=== PATIENT | male | born 1965 | race Caucasian/White ===

== ENCOUNTER 2019-01-10 20:10 | Emergency (ER) | payer OTHER ==
[~2019-01-10] VITALS: Ht 172.7 cm; Wt 74.8 kg
[~2019-01-10 20:10] MED LIST: ASPI81CH PO; CHOL10002 PO; CIPR500 PO; CYCL10 PO; Flonase 0.05% N16 GM; HYDACE5 PO; HYOS.125 SL; Hair, Skin & N1 EACH PO; IBUP800 PO; LORA1SY PO; METAMUCIL FIBE PO; METR500 PO; OMEP20ER PO; Omeprazole20 M1 PO; PHENA100 PO; PSEU120ER PO; Percocet 5-3251 EACH PO; Pyridium100 MG PO; RXCYCL10 PO; RXHYDACE PO; SENN187 PO; TRAM50 PO
[2019-01-10 20:50] LABS: Source, Urine Clean Catch
[2019-01-10 20:53] LABS: Bilirubin, Urine Neg (Neg); Blood, Urine 1+ (Neg); Glucose Qualitative, Urine Neg (Neg); Ketones, Urine Neg (Neg); Leukocyte Esterase, Urine Neg (Neg); Nitrite, Urine Neg (Neg); Protein, Urine Neg (Neg); Urobilinogen, Urine NORM (Normal)
[2019-01-10 20:57] LABS: BASOPHILS ABSOLUTE AUTO 0.04 K/mm3 (0.00-0.23); BASOPHILS PERCENT AUTO 0 % (0-2); EOSINOPHILS ABSOLUTE AUTO 0.13 K/mm3 (0.00-0.68); EOSINOPHILS PERCENT AUTO 1 % (0-6); Hematocrit 46.5 % (37.0-53.0); Hemoglobin 15.4 g/dL (13.5-17.5); IMMATURE GRAN ABSOLUTE AUTO 0.04 K/mm3 (0.00-0.10); IMMATURE GRAN PERCENT AUTO 0 % (0-1); LYMPHOCYTES ABSOLUTE AUTO 1.91 K/mm3 (0.84-5.20); LYMPHOCYTES PERCENT AUTO 19 % (21-46); MONOCYTES ABSOLUTE AUTO 0.76 K/mm3 (0.16-1.47); MONOCYTES PERCENT AUTO 7 % (4-13); Mean Corpuscular HGB 31.6 pg (26.0-34.0); Mean Corpuscular HGB Conc 33.1 g/dL (31.5-36.5); Mean Corpuscular Volume 96 fL (80-100); Mean Platelet Volume 12.7 fL (9.1-12.4); NEUTROPHILS ABSOLUTE AUTO 7.47 K/mm3 (1.96-9.15); NEUTROPHILS PERCENT AUTO 72 % (41-73); Platelet Count 191 K/mm3 (150-400); RDW Coefficient Variation 11.7 % (11.7-14.2); RDW Standard Deviation 40.8 fL (35.1-46.3); Red Blood Cell Count 4.87 M/mm3 (4.30-5.90); White Blood Cell Count 10.35 K/mm3 (4.00-11.30)
[2019-01-10 21:00] LABS: Appearance, Urine Clear (Clear); Color, Urine Yellow (P-Yellow)
[2019-01-10 21:01] LABS: Bacteria Not Seen /hpf; Red Blood Cells, Urine 0-2 /hpf (0-2); Squamous Epithelial Cells Not Seen /hpf (Few); White Blood Cells, Urine Not Seen /hpf (0-5)
[2019-01-10 21:16] LABS: Alanine Aminotransfer (ALT/SGP 24 U/L (12-78); Albumin, Blood 4.1 g/dL (3.4-5.0); Albumin/Globulin Ratio 1.1 (0.8-1.8); Alk Phos 91 U/L (50-136); Anion Gap 6 mmol/L (6-16); Aspartate Aminotrans (AST/SGOT 20 U/L (12-37); Bilirubin, Total 0.4 mg/dL (0.1-1.0); Blood Urea Nitrogen 8 mg/dL (8-24); Bun/Creatinine Ratio 9.2 (12.0-20.0); CO2, Blood 29 mmol/L (21-32); Calcium, Blood 9.1 mg/dL (8.5-10.1); Chloride, Blood 105 mmol/L (98-108); Creatinine, Blood 0.87 mg/dL (0.60-1.20); Globulin, Blood 3.6 g/dL (2.2-4.0); Glomerular Filtration Rate >60 (60-); Glucose, Blood 103 mg/dL (70-99); Potassium, Blood 3.7 mmol/L (3.5-5.5); Sodium, Blood 140 mmol/L (136-145); Total Protein, Blood 7.7 g/dL (6.4-8.2)
[2019-01-10] MEDS ORDERED: Flagyl500 MG PO (22:18)
[2019-01-10] MEDS ORDERED: LEVFLO500 PO (22:18)
[2019-01-10] MEDS ORDERED: Percocet 5-3251 EACH PO (22:18)
== END 2019-01-10 23:24 | disposition home or self-care (01) ==
LOC: ER 20:10
PROVIDERS: Physician Assistant
DX: K57.32 Diverticulitis of large intestine without perforation or abscess without bleeding (principal); Z79.899 Other long term (current) drug therapy; Z79.891 Long term (current) use of opiate analgesic; Z87.891 Personal history of nicotine dependence
CPT/HCPCS: 36415; 74176; 80053; 81001; 85025; 96374; 96375; 99284-25; A9270-GY; J2405; J3010

== ENCOUNTER 2019-01-16 15:21 | Inpatient (IN) | payer OTHER ==
[~2019-01-16] VITALS: Ht 172.7 cm; Wt 66.1 kg
[~2019-01-16 15:21] MED LIST changes: +Flagyl500 MG PO; -Flonase 0.05% N16 GM; +LEVFLO500 PO
[2019-01-16 16:10] LABS: BASOPHILS ABSOLUTE AUTO 0.03 K/mm3 (0.00-0.23); BASOPHILS PERCENT AUTO 0 % (0-2); EOSINOPHILS ABSOLUTE AUTO 0.07 K/mm3 (0.00-0.68); EOSINOPHILS PERCENT AUTO 1 % (0-6); Hematocrit 45.8 % (37.0-53.0); Hemoglobin 15.4 g/dL (13.5-17.5); IMMATURE GRAN ABSOLUTE AUTO 0.04 K/mm3 (0.00-0.10); IMMATURE GRAN PERCENT AUTO 0 % (0-1); LYMPHOCYTES ABSOLUTE AUTO 1.25 K/mm3 (0.84-5.20); LYMPHOCYTES PERCENT AUTO 12 % (21-46); MONOCYTES ABSOLUTE AUTO 0.95 K/mm3 (0.16-1.47); MONOCYTES PERCENT AUTO 9 % (4-13); Mean Corpuscular HGB 31.2 pg (26.0-34.0); Mean Corpuscular HGB Conc 33.6 g/dL (31.5-36.5); Mean Platelet Volume 11.9 fL (9.1-12.4); NEUTROPHILS ABSOLUTE AUTO 8.26 K/mm3 (1.96-9.15); NEUTROPHILS PERCENT AUTO 78 % (41-73); Platelet Count 203 K/mm3 (150-400); RDW Coefficient Variation 11.7 % (11.7-14.2); RDW Standard Deviation 39.9 fL (35.1-46.3); Red Blood Cell Count 4.94 M/mm3 (4.30-5.90)
[2019-01-16 16:32] LABS: Alanine Aminotransfer (ALT/SGP 39 U/L (12-78); Albumin, Blood 3.7 g/dL (3.4-5.0); Alk Phos 86 U/L (50-136); Anion Gap 7 mmol/L (6-16); Aspartate Aminotrans (AST/SGOT 28 U/L (12-37); Bilirubin, Total 0.5 mg/dL (0.1-1.0); Blood Urea Nitrogen 10 mg/dL (8-24); Bun/Creatinine Ratio 10.7 (12.0-20.0); CO2, Blood 28 mmol/L (21-32); Chloride, Blood 102 mmol/L (98-108); Creatinine, Blood 0.93 mg/dL (0.60-1.20); Globulin, Blood 3.8 g/dL (2.2-4.0); Glomerular Filtration Rate >60 (60-); Glucose, Blood 110 mg/dL (70-99); Potassium, Blood 4.4 mmol/L (3.5-5.5); Sodium, Blood 137 mmol/L (136-145); Total Protein, Blood 7.5 g/dL (6.4-8.2)
[2019-01-16 16:40] LABS: Mean Corpuscular Volume 93 fL (80-100)
[2019-01-16] MEDS ORDERED: IBUP800 PO (20:14)
[2019-01-16] MEDS ORDERED: Flonase 0.05% N16 GM (20:16)
--- NOTE | 2019-01-17 05:15 | NUR ---
NOC SHIFT SUMMARY PT ADMITTED THIS NIGHT FOR SIGMOID DIVERTICULITIS WITH INTRACTIBLE PAIN. HE IS PLEASANT AND COOPERATIVE WITH CARE. VSS. HAVE MEDICATED PER EMAR FOR PAIN. PT STATES PAIN HAS IMPROVED. HE IS AAOX4. RESP ARE EVEN AND UNLABORED. IS STILL AWAKE IN ROOM AND STATES NOT SLEEPY. CURRENTLY DOES NOT APPEAR IN ACUTE DISTRESS. I HAVE CALLED TO RT FOR CONTINIOUS PULSE OX TO BE PLACED. WILL CONTINUE TO MONITOR.
[2019-01-17 06:04] LABS: Anion Gap 5 mmol/L (6-16); Blood Urea Nitrogen 9 mg/dL (8-24); CO2, Blood 28 mmol/L (21-32); Calcium, Blood 8.6 mg/dL (8.5-10.1); Chloride, Blood 106 mmol/L (98-108); Creatinine, Blood 0.82 mg/dL (0.60-1.20); Glomerular Filtration Rate >60 (60-); Glucose, Blood 85 mg/dL (70-99); Sodium, Blood 139 mmol/L (136-145)
[2019-01-17 12:40] LABS: Adenovirus F 40/41 Not Detected (NOT DETECT); Astrovirus Not Detected (NOT DETECT); Campylobacter Sp Not Detected (NOT DETECT); Cryptosporidium Not Detected (NOT DETECT); Cyclospora Cayetanensis Not Detected (NOT DETECT); E. Coli O157 Not Detected (NOT DETECT); Entamoeba Histolytica Not Detected (NOT DETECT); Enteroaggregative E. coli-EAEC Not Detected (NOT DETECT); Enteropathogenic E. coli-EPEC Not Detected (NOT DETECT); Enterotoxigenic E. coli-ETEC Not Detected (NOT DETECT); Giardia Lamblia Not Detected (NOT DETECT); Norovirus GI/GII Not Detected (NOT DETECT); Plesiomonas Shigelloides Not Detected (NOT DETECT); Rotavirus A Not Detected (NOT DETECT); Salmonella Sp Not Detected (NOT DETECT); Sapovirus Not Detected (NOT DETECT); Shiga Toxin-prod E. coli-STEC Not Detected (NOT DETECT); Shigella/Enteroin E. coli-EIEC Not Detected (NOT DETECT); Vibrio Cholerae Not Detected (NOT DETECT); Vibrio Sp Not Detected (NOT DETECT); Yersinia Enterocolitica Not Detected (NOT DETECT)
--- NOTE | 2019-01-17 17:34 | NUR ---
PT IS ALERT AND ORIENTED AND COOPERATIVE WITH CARE. HE STARTED A CLEAR LIQUID DIET TODAY. HE COMPLAINED OF MINOR PAIN IN HIS ABDOMEN AFTER EATING JELLO. PT CALLS APPROPRIATELY AND ALERTS THE RN WHEN HE IS IN PAIN. WILL CONTINUE TO MONITOR.
--- NOTE | 2019-01-18 06:01 | NUR ---
SHIFT SUMMARY NO ACUTE CHANGES TO PRESENT THIS SHIFT. PT IS A&O, UP INDEPENDANT IN . TO SHOWER LAST NIGHT THEN REQUESTED NEW IV; PLACED TO RFA PER REQUEST. TOLERATED WELL. MEDICATED PER EMAR FOR C/O LOW ABD PAIN. TOLERATED CHICKEN BROTH AND APPLE JUICE LAST NIGHT. UNABLE TO TOLERATE EARLIER IN THE DAY. IV AND PO ABX GIVEN PER EMAR FOR DIVERTICULITIS AND C-DIFF. IVF'S INFUSING. PT UNABLE TO TOLERATE SCD'S DURING THE NIGHT. CALL LT IN REACH.
--- NOTE | 2019-01-18 18:42 | NUR ---
SHIFT SUMMARY MEDICATED FOR PAIN SEVERAL TIMES THIS SHIFT PER EMAR. PT DRINKING CLEAR LIQUIDS THIS SHIFT AND REPORTS PAIN HAS WORSENED FROM BREAKFAST TO LUNCH WHEN DRINKING. NO NAUSEA REPORTED. IVF INFUSING W/O DIFFICULTY. NO ACUTE CHANGES THIS SHIFT. CALL LIGHT IN REACH. WILL CONTINUE TO MONITOR AND REPORT TO ONCOMING RN.
--- NOTE | 2019-01-19 05:03 | NUR ---
SHIFT SUMMARY NO ACUTE CHANGES TO PRESENT THIS SHIFT. PT HAS RESTED WELL TONIGHT, SLEEPING MOST OF SHIFT. PT TOLERATED MOST OF CL DINNER TRAY. EGG CRATE PLACED ON BED, PER PT REQUEST, BEFORE HS. PT MEDICATED FOR SLEEP PER PT REQUEST. IVF'S CONTINUE TO INFUSE PER EMAR. PT IS INDEPENDANT IN RM AND TO BTHRM. PT DENIED FURTHER NEEDS. PT REQUESTING TO WEAR SCD'S TODAY INSTEAD OF GETTING ANOTHER LOVENOX INJECTION. CALL LT IN REACH.
--- NOTE | 2019-01-19 18:47 | NUR ---
SHIFT SUMMARY PT WAS CHANGED TO FULL LIQUID THIS SHIFT AND IS EATING SMALL AMOUNTS AND TOLERATING IT. PT DOES COMPLAIN OF CRAMPING AFTER BUT REPOPRTS PAIN IS MUCH BETTER. MEDICATED FOR PAIN WITH ORAL PAIN MEDICATION AND PT REPORTS IT IS EFFECTIVE. PT UP INDEPENDENTLY IN ROOM. NO ACUTE CHANGES THIS SHIFT. CALL LIGHT IN REAC. WILL CONTINUE TO MONITOR AND REPORT TO ONCOMING RN.
--- NOTE | 2019-01-20 18:36 | NUR ---
SHIFT SUMMARY: NO ACUTE CHANGES TO REPORT THIS SHIFT. PT A&O; CALM AND COOPERATIVE WITH CARE. MEDICATED FOR CHRONIC BACK PAIN PER EMAR. PT DIET ADVANCED TO REGULAR ADULT THIS SHIFT; PT NOT TOLERATING-C/O ABD PAIN 03/28 AFTER EVENING MEAL.IV ABX CONTINUING. WCTM.
[2019-01-21] MEDS ORDERED: Bentyl10 MG PO (13:50)
[2019-01-21] MEDS ORDERED: Florastor250 MG PO (13:50)
[2019-01-21] MEDS ORDERED: LEVFLO500 PO (13:51)
[2019-01-21] MEDS ORDERED: METR500 PO (13:51)
--- NOTE | 2019-01-21 14:58 | NUR ---
PATIENT DISCHARGE: PATIENT DISCHARGED TO HOME THIS SHIFT. MEDICATION RECONCILIATION COMPLETED; MED LIST FAXED TO [facility]; HARD SCRIPT PROVIDED TO PATIENT FOR CONTROLLED SUBSTANCE. DISCHARGE EDUCATION COMPLETED WITH PATIENT. PATIENT TRASNPORTED TO EXIT BY [facility] STAFF WITH WHEELCHAIR AT 1407. PATIENT DEPARTED [facility] VIA PRIVATE AUTO.
== END 2019-01-21 14:04 | disposition home or self-care (01) | DRG 392 ==
LOC: ER 15:21 → MEDS 15:22 → ENPENDDIS 01-21 10:33 → MEDS 01-21 14:04
PROVIDERS: Nurse Practitioner Acute Care; Physician Assistant; ADMIT Internal Medicine
DX: K57.32 Diverticulitis of large intestine without perforation or abscess without bleeding (principal); A04.72 Enterocolitis due to Clostridium difficile, not specified as recurrent; K21.9 Gastro-esophageal reflux disease without esophagitis; K58.9 Irritable bowel syndrome, unspecified; R59.0 Localized enlarged lymph nodes; I95.9 Hypotension, unspecified; M54.9 Dorsalgia, unspecified
CPT/HCPCS: 36415; 36416; 74177; 80048; 80053; 83735; 85025; 87324; 87507; 93005; 93010; 94762; 96361; 96361-59; 96365-59; 96366; 96367-59; 96375; 96375-59; 96376; 99285-25; A9270-GY; C9113; G0378; J0696; J1170; J1650; J2270; J2405; J2765; J7030; Q9967

== ENCOUNTER 2019-02-02 06:57 | Inpatient (IN) | payer OTHER ==
[~2019-02-02] VITALS: Ht 175.3 cm; Wt 83.7 kg
[~2019-02-02 06:57] MED LIST changes: +Bentyl10 MG PO; +Flonase 0.05% N16 GM; +Florastor250 MG PO
[2019-02-02] MEDS ORDERED: Percocet 5-3251 EACH PO (07:50)
[2019-02-03 05:03] LABS: BASOPHILS ABSOLUTE AUTO 0.02 K/mm3 (0.00-0.23); BASOPHILS PERCENT AUTO 0 % (0-2); EOSINOPHILS ABSOLUTE AUTO 0.01 K/mm3 (0.00-0.68); EOSINOPHILS PERCENT AUTO 0 % (0-6); Hematocrit 38.2 % (37.0-53.0); Hemoglobin 12.8 g/dL (13.5-17.5); IMMATURE GRAN ABSOLUTE AUTO 0.06 K/mm3 (0.00-0.10); IMMATURE GRAN PERCENT AUTO 0 % (0-1); LYMPHOCYTES ABSOLUTE AUTO 1.41 K/mm3 (0.84-5.20); LYMPHOCYTES PERCENT AUTO 10 % (21-46); MONOCYTES ABSOLUTE AUTO 0.96 K/mm3 (0.16-1.47); MONOCYTES PERCENT AUTO 7 % (4-13); Mean Corpuscular HGB 31.1 pg (26.0-34.0); Mean Corpuscular HGB Conc 33.5 g/dL (31.5-36.5); Mean Corpuscular Volume 93 fL (80-100); Mean Platelet Volume 12.1 fL (9.1-12.4); NEUTROPHILS PERCENT AUTO 82 % (41-73); Platelet Count 223 K/mm3 (150-400); RDW Coefficient Variation 11.9 % (11.7-14.2); RDW Standard Deviation 40.7 fL (35.1-46.3); Red Blood Cell Count 4.11 M/mm3 (4.30-5.90); White Blood Cell Count 13.56 K/mm3 (4.00-11.30)
[2019-02-03 05:27] LABS: Anion Gap 6 mmol/L (6-16); Blood Urea Nitrogen 8 mg/dL (8-24); Bun/Creatinine Ratio 11.5 (12.0-20.0); CO2, Blood 28 mmol/L (21-32); Calcium, Blood 8.3 mg/dL (8.5-10.1); Chloride, Blood 107 mmol/L (98-108); Creatinine, Blood 0.69 mg/dL (0.60-1.20); Glomerular Filtration Rate >60 (60-); Glucose, Blood 108 mg/dL (70-99); Potassium, Blood 4.1 mmol/L (3.5-5.5); Sodium, Blood 141 mmol/L (136-145)
[2019-02-08] MEDS ORDERED: ONDA4ODT MM (07:51)
[2019-02-08] MEDS ORDERED: Percocet 5-3251 EACH PO (07:53)
[2019-02-08] MEDS ORDERED: Flagyl500 MG PO (08:50)
[2019-02-08] MEDS ORDERED: LEVFLO500 PO (08:50)
== END 2019-02-08 09:30 | disposition home or self-care (01) | DRG 331 ==
LOC: SURS 06:57 → PRE IP 08:45 → SURS 13:14
PROVIDERS: ADMIT Surgery
PROC: 0DTN0ZZ Resection of Sigmoid Colon, Open Approach (ICD-10-PCS; principal; 2019-02-02 08:45)
DX: K57.30 Diverticulosis of large intestine without perforation or abscess without bleeding (principal); K58.9 Irritable bowel syndrome, unspecified; K21.9 Gastro-esophageal reflux disease without esophagitis; Z90.79 Acquired absence of other genital organ(s); Z87.891 Personal history of nicotine dependence
CPT/HCPCS: 36415; 80048; 85025; 87493; 88307; A9270-GY; J0295; J1100; J1885; J2250; J2370; J2405; J2704; J2710; J2765; J3010; J7120; Q0163; V2790

== ENCOUNTER 2019-11-06 07:14 | Day surgery (SDC) | payer OTHER ==
[~2019-11-06] VITALS: Ht 172.7 cm; Wt 71.7 kg
[~2019-11-06 07:14] MED LIST changes: +Loratadine10 MG; +ONDA4ODT MM
[2019-11-06] MEDS ORDERED: FLUO10 PO (07:56)
== END 2019-11-06 09:08 | disposition home or self-care (01) ==
LOC: ORSCSDS 07:14
PROVIDERS: Surgery
PROC: 0DBM8ZX Excision of Descending Colon, Via Natural or Artificial Opening Endoscopic, Diagnostic (ICD-10-PCS; principal; 2019-11-06 08:45)
PROC: 0DBL8ZX Excision of Transverse Colon, Via Natural or Artificial Opening Endoscopic, Diagnostic (ICD-10-PCS; principal; 2019-11-06 08:45)
DX: Z12.11 Encounter for screening for malignant neoplasm of colon (principal); Z86.010 Personal history of colon polyps; D12.3 Benign neoplasm of transverse colon; D12.4 Benign neoplasm of descending colon; K21.9 Gastro-esophageal reflux disease without esophagitis; Z79.899 Other long term (current) drug therapy
CPT/HCPCS: 88305; J2704; J7120

== ENCOUNTER → 2021-05-05 | Outpatient (CLI) | payer OTHER ==
[~2021-05-05] MED LIST changes: +FLUO10 PO
[2021-05-05 13:22] LABS: BASOPHILS ABSOLUTE AUTO 0.04 K/mm3 (0.00-0.23); BASOPHILS PERCENT AUTO 1 % (0-2); EOSINOPHILS ABSOLUTE AUTO 0.09 K/mm3 (0.00-0.68); EOSINOPHILS PERCENT AUTO 2 % (0-6); Hemoglobin 14.2 g/dL (13.5-17.5); IMMATURE GRAN ABSOLUTE AUTO 0.01 K/mm3 (0.00-0.10); IMMATURE GRAN PERCENT AUTO 0 % (0-1); LYMPHOCYTES ABSOLUTE AUTO 1.36 K/mm3 (0.84-5.20); LYMPHOCYTES PERCENT AUTO 33 % (21-46); MONOCYTES ABSOLUTE AUTO 0.31 K/mm3 (0.16-1.47); MONOCYTES PERCENT AUTO 8 % (4-13); Mean Corpuscular HGB 30.1 pg (26.0-34.0); Mean Corpuscular HGB Conc 32.3 g/dL (31.5-36.5); Mean Corpuscular Volume 93 fL (80-100); Mean Platelet Volume 11.7 fL (9.1-12.4); NEUTROPHILS ABSOLUTE AUTO 2.29 K/mm3 (1.96-9.15); NEUTROPHILS PERCENT AUTO 56 % (41-73); Platelet Count 219 K/mm3 (150-400); RDW Coefficient Variation 13.1 % (11.7-14.2); Red Blood Cell Count 4.71 M/mm3 (4.30-5.90)
[2021-05-05 14:13] LABS: Alanine Aminotransfer (ALT/SGP 32 U/L (12-78); Albumin, Blood 3.6 g/dL (3.4-5.0); Albumin/Globulin Ratio 1.2 (0.8-1.8); Alk Phos 73 U/L (50-136); Anion Gap 5 mmol/L (6-16); Aspartate Aminotrans (AST/SGOT 25 U/L (12-37); Bilirubin, Total 0.4 mg/dL (0.1-1.0); Blood Urea Nitrogen 19 mg/dL (8-24); Bun/Creatinine Ratio 24.1 (12.0-20.0); CHOL/HDL RATIO 2.3; CO2, Blood 25 mmol/L (21-32); Calcium, Blood 8.4 mg/dL (8.5-10.1); Chloride, Blood 111 mmol/L (98-108); Cholesterol 161 mg/dL (50-200); Creatinine, Blood 0.79 mg/dL (0.60-1.20); Glomerular Filtration Rate >60 (60-); Glucose, Blood 108 mg/dL (70-99); HDL Cholesterol 70 mg/dL (>39); LDL/HDL RATIO 1.2; Low Density Lipoprotein Chol 85 mg/dL (0-110); Potassium, Blood 4.2 mmol/L (3.5-5.5); Sodium, Blood 141 mmol/L (136-145); Thyroid Stimulating Hormone 0.878 uIU/mL (0.360-4.800); Total Protein, Blood 6.6 g/dL (6.4-8.2); Triglycerides 31 mg/dL (30-160); Very Low Density Lipoprot Chol 6 mg/dL (6-32)
[2021-05-06 08:11] LABS: HIV SCREEN 4TH GENERATION WRFX Non Reactive (Non Reactive)
== END | disposition home or self-care (01) ==
LOC: LAB SHORT 12:11 → LAB 12:11
PROVIDERS: Family Medicine
DX: Z00.01 Encounter for general adult medical examination with abnormal findings (principal); Z13.6 Encounter for screening for cardiovascular disorders; Z11.59 Encounter for screening for other viral diseases; K21.9 Gastro-esophageal reflux disease without esophagitis; E55.9 Vitamin D deficiency, unspecified
CPT/HCPCS: 80053; 80061; 82306; 84443; 85025; 86803; 87389

== ENCOUNTER 2022-12-27 09:59 | Inpatient (IN) | payer OTHER ==
[2022-12-27] VITALS (8 sets, daily range): BP systolic 92–141; BP diastolic 51–83
[~2022-12-27] VITALS: Ht 172.7 cm; Wt 76.9 kg
[~2022-12-27 09:59] MED LIST changes: +Acetaminophen650 M1 PO; -Flonase 0.05% N16 GM; +Flonase 0.05% Nasal; +IBUP200 PO; -Loratadine10 MG; +Loratadine10 MG PO; +MELO7.5 PO; +VENL75ER PO; +[UNRECOGNIZED DRUG - OTHER] TOP
--- NOTE | 2022-12-27 11:33 | NUR ---
History, Chart, Medications and Allergies reviewed before start of procedure. Lungs clear T/O to Auscultation. Patient confirms NPO status and agrees with scheduled surgery. Pre-Op teaching done. Pt verbalizes understanding. Patient reports completing Chlorhexadine shower X2 prior to admission to hospital.
--- NOTE | 2022-12-27 19:43 | NUR ---
SHIFT SUMMARY PT A&OX4, VSS/RA, TWILA PO, VOIDING, PAIN MANAGED WITH TYL/TOR/OXY, AMB SBA FWW & GB, UP TO CHAIR. S/P L TKA, AQUACEL CDI. REPORT TO TYLER ESPINOZA.
[2022-12-28] VITALS (9 sets, daily range): BP systolic 91–151; BP diastolic 68–95
[2022-12-28 04:56] LABS: BASOPHILS ABSOLUTE AUTO 0.03 K/mm3 (0.00-0.23); BASOPHILS PERCENT AUTO 0 % (0-2); EOSINOPHILS ABSOLUTE AUTO 0.04 K/mm3 (0.00-0.68); EOSINOPHILS PERCENT AUTO 0 % (0-6); Hematocrit 41.5 % (37.0-53.0); Hemoglobin 13.9 g/dL (13.5-17.5); IMMATURE GRAN ABSOLUTE AUTO 0.05 K/mm3 (0.00-0.10); IMMATURE GRAN PERCENT AUTO 0 % (0-1); LYMPHOCYTES ABSOLUTE AUTO 2.11 K/mm3 (0.84-5.20); LYMPHOCYTES PERCENT AUTO 17 % (21-46); MONOCYTES ABSOLUTE AUTO 0.81 K/mm3 (0.16-1.47); MONOCYTES PERCENT AUTO 7 % (4-13); Mean Corpuscular HGB Conc 33.5 g/dL (31.5-36.5); Mean Corpuscular Volume 90 fL (80-100); Mean Platelet Volume 10.9 fL (9.1-12.4); NEUTROPHILS ABSOLUTE AUTO 9.06 K/mm3 (1.96-9.15); NEUTROPHILS PERCENT AUTO 75 % (41-73); Platelet Count 206 K/mm3 (150-400); RDW Coefficient Variation 12.2 % (11.7-14.2); Red Blood Cell Count 4.63 M/mm3 (4.30-5.90)
[2022-12-28 06:00] LABS: Bun/Creatinine Ratio 16.4 (12.0-20.0); Calcium, Blood 8.7 mg/dL (8.5-10.1); Creatinine, Blood 0.85 mg/dL (0.60-1.20); Magnesium, Blood 2.1 mg/dL (1.6-2.4); Potassium, Blood 4.1 mmol/L (3.5-5.5)
--- NOTE | 2022-12-28 07:26 | NUR ---
SHIFT SUMMARY POD1 L TKA WITH AQUACEL DRESSING REMAINED CDI. PT'S PAIN REMAIN MODERATE T/O SHIFT. PAIN MANAGED WITH TORADOL,TYLENOL AND BENEDICTO. TOLERATING PO INTAKE. DENIES N/V. VOIDING. 1PA WITH FWW AND GB. PT PREFERED TO SLEEP IN HIS RECLINER LAST NIGHT. WALKED IN THE HALLWAY. VSS. DENIES CP AND SOB. DENIES DIZZINESS. CALL LIGHT WITHIN REACH. REPORT GIVENT TO PABLITO ESPINOZA.
[2022-12-28] MEDS ORDERED: Aspir 8181 MG PO (12:42)
[2022-12-28] MEDS ORDERED: OXAYDO5 M1 PO (12:42)
--- NOTE | 2022-12-28 15:55 | NUR ---
Pt. is awake in bed and welcomes this grid maker's visit. Pt. is pleasant and rapport is established. Facilitated a life review. Pt. displays evidence of engagement and awareness. Pt. also verbalizes about the support he has from siblings in the area. Pt. is a man of austyn and matters of austyn and belief are considered. Prayed for Pt. Pt. verbalized gratitude for the spiritual care visit.
--- NOTE | 2022-12-28 16:44 | NUR ---
SHIFT SUMMARY POD1 L TKA WITH AQUACEL DRESSING, REMAINED CDI. PT REPORTED MINIMAL PAIN, PAIN MANAGED WITH TORADOL AND TYLENOL. PT HAS POLAR PACK, [place] HOSE, AND SCD. LLE ELEVATED. PT AMBULATES WITH WALKER, GAIT BELT, AND MINIMAL NURSE ASSIST TO THE BATHROOM AND WHILE WALKING. PT EXPERIENCED SYMPTOMATIC ORTHOSTATIC HYPOTENSION WHILE WORKING WITH PHYSICAL THERAPY AND CONTINUES TO REPORT OCCASSIONAL DIAPHORESIS. HOSPITALIST CONSULT COMPLETED, WAITNG FOR MD TO ARRIVE. PT IS A&Ox4.
--- NOTE | 2022-12-28 17:59 | NUR ---
ORTHOSTATIC HYPOTENSION PT WORKED WITH PHYSICAL THERAPY THIS AM AND BECAME DIAPHORETIC, CLAMMY, AND DIZZY/LIGHTHEADED WHEN AMBULATING. PT WAS ASSISTED BACK TO THE CHAIR AND BP WAS CHECKED BY MAYTE FROM PHYSICAL THERAPY. BP WAS 105/73 AFTER GETTING BACK TO THE CHIAR. PT RECOVERED AND FELT BETTER AFTER REST. PT STATED HE HAS HAD SEVERAL EPISODES LIKE THIS AND HAS NEARLY FAINTED AT HOME PRIOR TO COMING IN FOR SURGERY. PT ALSO REPORTS HE HAD AN EPISODE IN DAY SURGERY PRIOR TO HIS OPERATION; PT STATED HE WAS UP TO THE BATHROOM AND FELT LIKE HE WAS GOING TO FAINT. FLUIDS ENCOURAGED. REACHED OUT TO DR. FAIRCHILD AT 1053 REQUESTING A PHONE CALL REGARDING CONCERNS. MAYTE FROM PHYSICAL THERAPY RETURNED FOR A SECOND SESSION OF THERAPY THIS AFTERNOON. PT STARTED TO FEEL DIAPHORETIC AND HOT WHILE DOING EXERCISES IN THE CHAIR. BP WAS CHECKED AND WAS 138/75 HR 91 WHILE SITTING. WHEN PT STOOD BP DROPPED TO 91/76 AND HR INCREASED TO 122. PT WAS ASSISTED TO GET BACK TO THE CHAIR. BP IMPROVED AFTER SITTING DOWN AND SYMPTOMS RESOLVED. DR. FAIRCHILD NOTIFIED AND HOSPITALIST CONSULT WAS ORDERED. [facility] NURSE PRACTITIONER CONSULTED AND ORDERED 1L FLUID BOLUS. PLAN TO CHECK ORTHOSTATIC VS WHEN BOLUS IS COMPLETE.
--- NOTE | 2022-12-28 18:53 | NUR ---
SPOKE WITH KARINA MORALES AFTER 1L OF NORMAL SALINE WAS GIVEN AND ORTHOSTATIC VS CHECKED. SITTING 127/77 HR 78 STANDING 131/74 HR 82 AFTER WALKING IN THE ROOM 126/72 HR 75 PT REPORTED FEELING DIZZY WITH THE TRANSITION FROM SITTING TO STANDING. PER KARINA MORALES PT SHOULD HAVE AND ADDITIONAL LITER BOLUS WITH LACTATED RINGERS SINCE HE STILL FELT DIZZY WHEN TRANSITIONING FROM SITTING TO STANDING.
[2022-12-29 03:50] VITALS: BP 118/76
[2022-12-29 03:51] VITALS: BP 118/76
--- NOTE | 2022-12-29 05:28 | NUR ---
POD2 L TKA. PATIENT AOX4. AQUACEL TO L KNEE C/D/I. POLAR DAVID IN PLACE. [place]'S AND SCD'S IN PLACE. PATIENT VOIDING AND TOLERATING PO INTAKE. 1 ITER BOLUS INFUSED AT START OF SHIFT FOR ORTHOSTATIC BP. PATIENT DID EXPERIENCE SOME DIZZINESS AND SWEATING WHILE AMBULATING TO THE BATHROOM AT START OF SHIFT. PATIENT USES GB, FWW AND 1 ASSIST TO AMBULATE. BP HAS RESOLVED TO 118/76, DENIES DIZZINESS, SOB, CHEST PAIN, SWEATING. CURRENTLY PATIENT IS WELL PAIN MANAGED AND RESTING. PATIENT CALLS APPROPRIATELY AND CALL LIGHT IS IN REACH.PLAN TO WORK WITH THERAPY AND DISCHARGE HOME. WILL REPORT TO DAY RN
[2022-12-29 08:25] VITALS: BP 131/81
[2022-12-29 08:27] VITALS: BP 120/72
--- NOTE | 2022-12-29 09:53 | NUR ---
THIS NURSE TALKED WITH DR. FAIRCHILD ABOUT PATIENTS FATIGUE/SHORTNESS OR BREATH WITH PHYSICAL THERAPY EVEN THOUGH PATIENT HAS HAD IMPROVED BP'S. DR. FAIRCHILD IS OKAY WITH DISCHARGE.
--- NOTE | 2022-12-29 10:55 | NUR ---
DISCHARGE NOTE: PATIENT WAS EDUCATED ON DISCHARGE INSTRUCTIONS, ESPECIALLY HOW TO PREVENT FALLS AT HOME. PATIENT VERBALIZED UNDERSTANDING OF INSTRUCTIONS AND HAD NO FURTHER QUESTIONS AT THIS TIME. IV WAS TAKEN OUT AND WNL. PAIN IS MANAGED WITH ORAL PAIN MEDICATIONS. HIS LEFT KNEE HAS AN AQUACEL THAT IS C/D/I. DENIES NUMBNESS OR TINGLING AND CAN MOVE ALL FINGERS AND TOES. HE IS A SBA WITH FWW AND GAIT BELT. HE IS TOLERATING PO INTAKE AND IS VOIDING. PATIENT IS DRESSED AND HAS ITEMS IN THE ROOM GATHERED. HIS SISTER IS ON HER WAY TO COME PICK HIM UP SHORTLY.
--- NOTE | 2022-12-29 11:18 | NUR ---
patient is being wheelchaired out to sisters car to be taken home.
== END 2022-12-29 11:25 | disposition home or self-care (01) | DRG 470 ==
LOC: ORSCMMR 09:59 → ORD 11:30 → ORSCMMR 12:45 → SURS 15:03 → ORSCMMR 12-28 12:15 → SURS 12-28 12:15 → ORSCMMR 12-28 19:19 → SURS 12-28 19:20
PROVIDERS: ADMIT Orthopaedic Surgery
PROC: 0SRD0JA Replacement of Left Knee Joint with Synthetic Substitute, Uncemented, Open Approach (ICD-10-PCS; principal; 2022-12-27 12:45)
PROC: 0YPB0YZ Removal of Other Device from Left Lower Extremity, Open Approach (ICD-10-PCS; principal; 2022-12-27 12:45)
DX: M17.12 Unilateral primary osteoarthritis, left knee (principal); M17.32 Unilateral post-traumatic osteoarthritis, left knee; K21.9 Gastro-esophageal reflux disease without esophagitis; I95.1 Orthostatic hypotension; F12.10 Cannabis abuse, uncomplicated; N40.0 Benign prostatic hyperplasia without lower urinary tract symptoms; G56.00 Carpal tunnel syndrome, unspecified upper limb; E55.9 Vitamin D deficiency, unspecified; M25.50 Pain in unspecified joint; Z98.1 Arthrodesis status; Z86.19 Personal history of other infectious and parasitic diseases; Z79.899 Other long term (current) drug therapy; Z98.890 Other specified postprocedural states; Z87.19 Personal history of other diseases of the digestive system; Z90.49 Acquired absence of other specified parts of digestive tract; Z79.52 Long term (current) use of systemic steroids
CPT/HCPCS: 36415; 73560-LT; 80048; 83735; 85025; 97110; 97116; 97161; 97530; A9270; C1776; J0171; J0690; J0735; J1100; J1885; J2250; J2370; J2405; J2704; J2795; J3010; J7030; J7120

== ENCOUNTER → 2025-05-27 | Outpatient (CLI) | payer OTHER ==
[~2025-05-27] MED LIST changes: +Aspir 8181 MG PO; +OXAYDO5 M1 PO
[2025-05-27 16:48] LABS: BASOPHILS ABSOLUTE AUTO 0.04 K/mm3 (0.00-0.23); BASOPHILS PERCENT AUTO 1 % (0-2); EOSINOPHILS ABSOLUTE AUTO 0.19 K/mm3 (0.00-0.68); EOSINOPHILS PERCENT AUTO 4 % (0-6); Hematocrit 44.3 % (37.0-53.0); Hemoglobin 14.6 g/dL (13.5-17.5); IMMATURE GRAN ABSOLUTE AUTO 0.03 K/mm3 (0.00-0.10); IMMATURE GRAN PERCENT AUTO 1 % (0-1); LYMPHOCYTES ABSOLUTE AUTO 1.84 K/mm3 (0.84-5.20); LYMPHOCYTES PERCENT AUTO 34 % (21-46); MONOCYTES ABSOLUTE AUTO 0.43 K/mm3 (0.16-1.47); MONOCYTES PERCENT AUTO 8 % (4-13); Mean Corpuscular HGB Conc 33.0 g/dL (31.5-36.5); Mean Corpuscular Volume 93 fL (80-100); NEUTROPHILS ABSOLUTE AUTO 2.87 K/mm3 (1.96-9.15); NEUTROPHILS PERCENT AUTO 53 % (41-73); NRBC ABSOLUTE 0.00 K/mm3 (0.00-0.02); NRBC Auto 0.0 /100 WBC (0.0-0.2); Platelet Count 199 K/mm3 (150-400); RDW Coefficient Variation 11.9 % (11.7-14.2); RDW Standard Deviation 41.3 fL (35.1-46.3)
[2025-05-27 18:39] LABS: Alanine Aminotransfer (ALT/SGP 26 U/L (12-78); Albumin, Blood 3.7 g/dL (3.4-5.0); Albumin/Globulin Ratio 1.2 (0.8-1.8); Anion Gap 6 mmol/L (3-11); Aspartate Aminotrans (AST/SGOT 19 U/L (12-37); Bilirubin, Total 0.6 mg/dL (0.1-1.0); Blood Urea Nitrogen 12 mg/dL (8-24); CHOL/HDL RATIO 2.8; CO2, Blood 29 mmol/L (21-32); Calcium, Blood 9.1 mg/dL (8.5-10.1); Chloride, Blood 107 mmol/L (98-108); Cholesterol 191 mg/dL (50-200); Creatinine, Blood 0.95 mg/dL (0.60-1.20); Globulin, Blood 3.1 g/dL (2.2-4.0); Glucose, Blood 104 mg/dL (70-99); HDL Cholesterol 69 mg/dL (>39); LDL/HDL RATIO 1.6; Low Density Lipoprotein Chol 109 mg/dL (0-110); Potassium, Blood 4.6 mmol/L (3.5-5.5); Sodium, Blood 137 mmol/L (136-145); Total Protein, Blood 6.8 g/dL (6.4-8.2); Triglycerides 65 mg/dL (30-160); Very Low Density Lipoprot Chol 13 mg/dL (6-32)
== END ==
LOC: LAB SHORT 15:04 → LAB 15:04
PROVIDERS: Student in an Organized Health Care Education/Training Program
DX: I10 Essential (primary) hypertension (principal)
CPT/HCPCS: 80053; 80061; 85025

== ENCOUNTER 2025-07-18 12:11 | Day surgery (SDC) | payer OTHER ==
[2025-07-18] VITALS (17 sets, daily range): BP systolic 96–162; BP diastolic 63–97
[~2025-07-18] VITALS: Ht 175.3 cm; Wt 78.9 kg
[~2025-07-18 12:11] MED LIST changes: +ALLERGY RELIEF10 M2 PO; +Inderal60 MG PO
--- NOTE | 2025-07-18 13:43 | NUR ---
07/18/25 1343 Fransisca Ramirez CONFIRMED AND REVIEWED H&P, MEDCICATIONS, ALLERGIES, MEDICAL HISTORY, RESPIRATORY HISTORY, VITAL SIGNS, 3-LEAD EKG, CONSENTS, AND PHYSICIAN ORDERS. PATIENT CONFIRMS NPO STATUS AND AGREES WITH SCHEDULED PROCEDURE. MONITOR INTACT WITH CONTINUOUS PULSE OXIMETRY, CAPNOGRAPHY, 3-LEAD EKG, INTERMITTENT BP. SUPPLEMENTAL O2 TO BE TITRATED THROUGHOUT PROCEDURE TO MAINTAIN O2 SATURATION ABOVE 90%. PATIENT DETERMINED TO BE ASA APPROPRIATE FOR PROPOFOL SEDATION PRIOR TO START OF PROCEDURE BY DR. BARLOW.
--- NOTE | 2025-07-18 14:40 | NUR ---
Discharge instructions reviewed with patient. Patient verbalizes understanding. Copy given to patient to take home. Patient States Post-Procedure ride home has been arranged. Discharged via wheelchair to private car for ride home.
== END 2025-07-18 14:35 | disposition home or self-care (01) ==
LOC: ORSCMMR 12:11 → ORD 13:30 → ORSCMMR 14:35
PROVIDERS: Surgery
PROC: 0DBM8ZX Excision of Descending Colon, Via Natural or Artificial Opening Endoscopic, Diagnostic (ICD-10-PCS; principal; 2025-07-18 13:30)
PROC: 0DBK8ZX Excision of Ascending Colon, Via Natural or Artificial Opening Endoscopic, Diagnostic (ICD-10-PCS; principal; 2025-07-18 13:30)
DX: Z12.11 Encounter for screening for malignant neoplasm of colon (principal); D12.2 Benign neoplasm of ascending colon; D12.4 Benign neoplasm of descending colon; K57.30 Diverticulosis of large intestine without perforation or abscess without bleeding; Z86.0101 Personal history of adenomatous and serrated colon polyps; I10 Essential (primary) hypertension; K21.9 Gastro-esophageal reflux disease without esophagitis; N40.0 Benign prostatic hyperplasia without lower urinary tract symptoms; Z79.899 Other long term (current) drug therapy
CPT/HCPCS: 88305; J2704; J7120